=== PATIENT | female | born 1940 | race Caucasian/White ===

== ENCOUNTER 2021-01-02 11:36 | Outpatient (CLI) | payer MEDICARE | END 2021-01-02 11:37 | disposition home or self-care (01) | LOC: CSHMAMMO 11:36 | PROVIDERS: ATTEND Family Medicine | DX: Z12.31 Encounter for screening mammogram for malignant neoplasm of breast (principal) | CPT/HCPCS: 77063; 77067 ==

== ENCOUNTER 2021-01-16 10:29 | Outpatient (CLI) | payer MEDICARE ==
[2021-01-16 18:29] LABS: SARS-CoV-2 PCR by NAA Not Detected (NotDetected)
== END 2021-01-16 10:30 | disposition home or self-care (01) ==
LOC: CSHLAB 10:29
PROVIDERS: ATTEND Internal Medicine Gastroenterology
DX: Z20.822 Contact with and (suspected) exposure to COVID-19 (principal)
CPT/HCPCS: 87635; U0003; U0005

== ENCOUNTER 2021-01-20 08:26 | Outpatient (CLI) | payer MEDICARE | END 2021-01-20 08:27 | disposition home or self-care (01) | LOC: CSHNM 08:26 | PROVIDERS: ATTEND Internal Medicine Gastroenterology | DX: E11.43 Type 2 diabetes mellitus with diabetic autonomic (poly)neuropathy (principal) | CPT/HCPCS: 78264; A9541 ==

== ENCOUNTER 2021-11-01 11:51 | Emergency (ER) | payer MEDICARE | END 2021-11-01 12:55 | disposition home or self-care (01) | LOC: CSHERS 11:51 | DX: M54.50 Low back pain, unspecified (principal); K59.00 Constipation, unspecified; F11.90 Opioid use, unspecified, uncomplicated; I10 Essential (primary) hypertension; E11.9 Type 2 diabetes mellitus without complications; G47.30 Sleep apnea, unspecified; Z85.828 Personal history of other malignant neoplasm of skin; E66.9 Obesity, unspecified; E78.5 Hyperlipidemia, unspecified; M19.90 Unspecified osteoarthritis, unspecified site | CPT/HCPCS: 99283 ==

== ENCOUNTER 2022-09-15 13:38 | Inpatient (IN) | payer OTHER ==
[2022-09-15] MEDS ORDERED: Morphine 4 MG/ML VIAL ONE (15:24)
[2022-09-15] MEDS ORDERED: Ketorolac Tromethamine 30 MG/ML VIAL ONE (15:25)
[2022-09-15] MEDS ORDERED: Ondansetron PF 4 MG/2 ML Vial ONE (15:25)
[2022-09-15 15:40] LABS: #Basophils 0.1 10x3/uL (0.0-0.2); #Eosinphils 0.2 10x3/uL (0.0-0.5); #Monocytes 0.7 10x3/uL (0.0-1.1); #Neutrophils 7.4 10x3/uL (1.5-8.4); %Basophils 0.7 % (0.0-2.0); %Eosinophils 1.6 % (0.0-6.0); %Lymphocytes 16.2 % (18.0-47.0); %Monocytes 7.3 % (0.0-10.0); %Neutrophils 73.5 % (40.0-75.0); Hemoglobin 10.1 g/dL (12.0-15.5); Mean Corpuscular HGB CONC 32.2 g/dL (32.0-36.0); Mean Corpuscular Hemoglobin 27.4 pg (27.0-33.0); Mean Corpuscular Volume 85.1 fl (81.6-98.3); Mean Platelet Volume 9.5 fl (7.4-10.4); Platelet Count 315 10x3/uL (150-450); RBC Distribution Width 15.2 % (11.5-14.5); Red Blood Cell (RBC) Count 3.69 10x6/uL (3.90-5.03); White Blood Cell (WBC) Count 10.1 10x3/uL (3.5-10.5)
[2022-09-15 15:51] LABS: ALT (SGPT) 6 U/L (8-55); AST (SGOT) 11 U/L (5-34); Alkaline Phosphatase 79 U/L (40-110); Anion Gap 16 mmol/L (10-20); BUN (Urea Nitrogen) 43 mg/dL (9.8-20.1); Bilirubin, Total 0.3 mg/dL (0.2-1.2); Calc. Creatinine Clearance 0 mL/min (70-130); Carbon Dioxide 24 mmol/L (23-31); Chloride 101 mmol/L (98-107); Estimated GFR 23; Globulin 3.4 g/dL (2.4-3.5); Glucose 194 mg/dL (83-110); Magnesium 1.5 mg/dL (1.6-2.6); Potassium 5.5 mmol/L (3.5-5.1); Protein, Total 7.4 g/dL (5.8-8.1); Sodium 135 mmol/L (136-145)
[2022-09-15 17:46] LABS: SARS-CoV-2 NAA Rapid Test Not Detected (NotDetected)
[2022-09-15] MEDS ORDERED: HumaLOG 300 UNITS/3 ML VIAL SC PRN (17:48)
[2022-09-15] MEDS ORDERED: Dextrose 50% Abboject 50 ML SYRINGE SLOW IVP PRN ×2 (17:48→18:06)
[2022-09-15] MEDS ORDERED: Dextrose 5% in Water 1,000 ML IV PRN (17:48)
[2022-09-15] MEDS ORDERED: HYDROcodone/Acetaminophen 7.5/325 mg Tablet PO PRN (17:49)
[2022-09-15] MEDS ORDERED: Morphine 2 MG/ML VIAL SLOW IVP PRN (17:50)
[2022-09-15] MEDS ORDERED: Acetaminophen 325 MG TAB PO PRN (17:51)
[2022-09-15] MEDS ORDERED: Ondansetron PF 4 MG/2 ML Vial IVP PRN (17:51)
[2022-09-15] MEDS ORDERED: Senokot S 8.6-50 MG TAB PO PRN (17:51)
[2022-09-15] MEDS ORDERED: Ondansetron ODT 4 MG TAB PO PRN (17:51)
[2022-09-15] MEDS ORDERED: Insulin Regular 300 UNITS/3 ML VIAL IVP ONE (18:09)
[2022-09-15] MEDS ORDERED: Magnesium 2 GM/50 ML(in water) 2 GM in Premix Bag 1 BAG IVPB ONE (18:10)
[2022-09-15] MEDS ORDERED: Sodium Chloride 0.9% 1,000 ML IV SCH (18:15)
[2022-09-15] MEDS ORDERED: Magnesium 2 GM/50 ML(in water) 2 GM in Premix Bag 1 BAG IVPB SCH (19:45)
[2022-09-15 20:19] VITALS: BMI 34.4
[2022-09-15 20:30] LABS: Potassium 4.2 mmol/L (3.5-5.1)
[2022-09-15] MEDS: Famotidine 20 MG TAB PO SCH (20:55)
[2022-09-15] MEDS: Morphine ER 15 MG TAB PO SCH (20:55)
[2022-09-15] MEDS: Calcium Gluc 4.6 MEQ/10 ML (100 MG/ML) SLOW IVP SCH ×2 (20:55→21:40)
[2022-09-15] MEDS: Gabapentin 400 MG CAP PO SCH (20:58)
[2022-09-15] MEDS: Apixaban 5 MG TAB PO SCH (20:58)
[2022-09-16 04:34] LABS: #Basophils 0.1 10x3/uL (0.0-0.2); #Eosinphils 0.2 10x3/uL (0.0-0.5); #Monocytes 0.7 10x3/uL (0.0-1.1); #Neutrophils 5.2 10x3/uL (1.5-8.4); %Basophils 0.8 % (0.0-2.0); %Eosinophils 2.4 % (0.0-6.0); %Lymphocytes 20.7 % (18.0-47.0); %Monocytes 8.5 % (0.0-10.0); %Neutrophils 66.7 % (40.0-75.0); Mean Corpuscular HGB CONC 31.7 g/dL (32.0-36.0); Mean Corpuscular Hemoglobin 27.3 pg (27.0-33.0); Mean Corpuscular Volume 86.1 fl (81.6-98.3); Mean Platelet Volume 9.3 fl (7.4-10.4); Platelet Count 300 10x3/uL (150-450); RBC Distribution Width 14.8 % (11.5-14.5); Red Blood Cell (RBC) Count 3.66 10x6/uL (3.90-5.03); White Blood Cell (WBC) Count 7.9 10x3/uL (3.5-10.5)
[2022-09-16 04:53] LABS: Anion Gap 15 mmol/L (10-20); BUN (Urea Nitrogen) 43 mg/dL (9.8-20.1); Calc. Creatinine Clearance 32 mL/min (70-130); Calcium 10.1 mg/dL (7.8-10.44); Carbon Dioxide 24 mmol/L (23-31); Chloride 104 mmol/L (98-107); Estimated GFR 24; Glucose 154 mg/dL (83-110); Magnesium 2.3 mg/dL (1.6-2.6); Potassium 5.5 mmol/L (3.5-5.1); Sodium 137 mmol/L (136-145)
[2022-09-16] MEDS ORDERED: Dextrose 50% Abboject 50 ML SYRINGE SLOW IVP SCH (08:00)
[2022-09-16] MEDS ORDERED: metFORMIN 500 MG TAB PO SCH (08:00)
[2022-09-16] MEDS ORDERED: Insulin Regular 300 UNITS/3 ML VIAL IVP SCH (08:00)
[2022-09-16] MEDS ORDERED: Lisinopril 5 MG TAB PO SCH (09:00)
[2022-09-16] MEDS: Amlodipine 10 MG TAB PO SCH (09:20)
[2022-09-16] MEDS: Gabapentin 400 MG CAP PO SCH ×2 (09:20→21:32)
[2022-09-16] MEDS: Apixaban 5 MG TAB PO SCH ×2 (09:20→21:32)
[2022-09-16] MEDS: Morphine ER 15 MG TAB PO SCH ×3 (09:21→21:32)
[2022-09-16] MEDS: HumaLOG 300 UNITS/3 ML VIAL SC PRN ×2 (12:45→17:30)
[2022-09-16 12:57] LABS: Bilirubin Neg (Negative); Blood, Urine Negative (Negative); Clarity Clear (Clear); Glucose, Urine (Dipstick) 50 mg/dL (Negative); Ketone, Urine Negative (Negative); Leukocyte Negative (Negative); Nitrite Negative (Negative); Protein, Urine (Dipstick) 15 mg/dl (Neg-Trace); Specific Gravity, Urine 1.015 (1.005-1.030); Urobilinogen Normal mg/dL (Less than 2)
[2022-09-16 13:04] LABS: Bacteria/HPF None Seen HPF (None Seen); RBC/HPF 0-3 HPF (0-3); Squamous Epithelial 0-3 HPF (0-3); WBC/HPF 0-3 HPF (0-3)
[2022-09-16 13:39] LABS: ALV-art Gradient 57.345 mmHg (0-20); Actual Bicarbonate (HCO3a) 21.5 mEq/L (22-28); Base Excess (BEa) -4.7 mEq/L (-2.0 to +3.0); CO2 Tension 43.9 mmHg (35.0-45.0); Calcium, Ionized (arterial) 1.27 mmol/L (1.12-1.30); Carboxyhemoglobin (COHb) 0.4 gm% (0.0-3.0); O2 Tension (PaO2), arterial 58.9 mmHg (> 70.0); Potassium - ABG Lab 5.2 mmol/L (3.70-5.30); Puncture Site RRA; pH, Arterial 7.31 (7.35-7.45)
[2022-09-16] MEDS: Sodium Chloride 0.9% 1,000 ML IV SCH (15:09)
[2022-09-16 17:01] LABS: Anion Gap 14 mmol/L (10-20); BUN (Urea Nitrogen) 37 mg/dL (9.8-20.1); Calc. Creatinine Clearance 40 mL/min (70-130); Calcium 10.3 mg/dL (7.8-10.44); Carbon Dioxide 24 mmol/L (23-31); Chloride 104 mmol/L (98-107); Estimated GFR 32; Glucose 160 mg/dL (83-110); Potassium 5.3 mmol/L (3.5-5.1); Sodium 137 mmol/L (136-145)
[2022-09-16] MEDS ORDERED: LOKELMA 10 GM PACKET PO SCH (18:15)
[2022-09-16] MEDS: Famotidine 20 MG TAB PO SCH (21:32)
[2022-09-17 00:18] LABS: Anion Gap 14 mmol/L (10-20); BUN (Urea Nitrogen) 29 mg/dL (9.8-20.1); Calc. Creatinine Clearance 47 mL/min (70-130); Calcium 9.9 mg/dL (7.8-10.44); Carbon Dioxide 25 mmol/L (23-31); Chloride 106 mmol/L (98-107); Estimated GFR 39; Glucose 164 mg/dL (83-110); Potassium 5.3 mmol/L (3.5-5.1); Sodium 140 mmol/L (136-145)
[2022-09-17 04:36] LABS: #Basophils 0.1 10x3/uL (0.0-0.2); #Eosinphils 0.2 10x3/uL (0.0-0.5); #Monocytes 0.5 10x3/uL (0.0-1.1); #Neutrophils 4.7 10x3/uL (1.5-8.4); %Basophils 0.8 % (0.0-2.0); %Eosinophils 2.7 % (0.0-6.0); %Lymphocytes 17.1 % (18.0-47.0); %Monocytes 7.2 % (0.0-10.0); %Neutrophils 71.3 % (40.0-75.0); Mean Corpuscular HGB CONC 32.6 g/dL (32.0-36.0); Mean Corpuscular Hemoglobin 27.5 pg (27.0-33.0); Mean Corpuscular Volume 84.3 fl (81.6-98.3); Mean Platelet Volume 9.1 fl (7.4-10.4); Platelet Count 272 10x3/uL (150-450); RBC Distribution Width 14.6 % (11.5-14.5); Red Blood Cell (RBC) Count 3.64 10x6/uL (3.90-5.03); White Blood Cell (WBC) Count 6.7 10x3/uL (3.5-10.5)
[2022-09-17 04:45] LABS: Anion Gap 12 mmol/L (10-20); BUN (Urea Nitrogen) 25 mg/dL (9.8-20.1); Calc. Creatinine Clearance 58 mL/min (70-130); Calcium 9.8 mg/dL (7.8-10.44); Carbon Dioxide 25 mmol/L (23-31); Chloride 104 mmol/L (98-107); Estimated GFR 49; Glucose 167 mg/dL (83-110); Potassium 4.3 mmol/L (3.5-5.1); Sodium 137 mmol/L (136-145)
[2022-09-17] MEDS: Apixaban 5 MG TAB PO SCH ×2 (09:52→20:29)
[2022-09-17] MEDS: Amlodipine 10 MG TAB PO SCH (09:52)
[2022-09-17] MEDS: Gabapentin 400 MG CAP PO SCH ×2 (09:52→20:29)
[2022-09-17] MEDS: Morphine ER 15 MG TAB PO SCH ×3 (09:53→20:30)
[2022-09-17] MEDS: Sodium Chloride 0.9% 1,000 ML IV SCH (09:54)
[2022-09-17] MEDS: HumaLOG 300 UNITS/3 ML VIAL SC PRN ×2 (12:01→17:02)
[2022-09-17] MEDS: Famotidine 20 MG TAB PO SCH (20:29)
[2022-09-18] MEDS: Sodium Chloride 0.9% 1,000 ML IV SCH (01:58)
[2022-09-18 05:24] LABS: #Eosinphils 0.2 10x3/uL (0.0-0.5); #Monocytes 0.6 10x3/uL (0.0-1.1); #Neutrophils 5.2 10x3/uL (1.5-8.4); %Basophils 0.4 % (0.0-2.0); %Eosinophils 2.3 % (0.0-6.0); %Lymphocytes 20.2 % (18.0-47.0); %Monocytes 7.6 % (0.0-10.0); %Neutrophils 68.6 % (40.0-75.0); Mean Corpuscular HGB CONC 31.6 g/dL (32.0-36.0); Mean Corpuscular Volume 85.2 fl (81.6-98.3); Platelet Count 292 10x3/uL (150-450); Red Blood Cell (RBC) Count 3.71 10x6/uL (3.90-5.03); White Blood Cell (WBC) Count 7.5 10x3/uL (3.5-10.5)
[2022-09-18 05:31] LABS: Anion Gap 14 mmol/L (10-20); BUN (Urea Nitrogen) 18 mg/dL (9.8-20.1); Calc. Creatinine Clearance 58 mL/min (70-130); Carbon Dioxide 25 mmol/L (23-31); Chloride 106 mmol/L (98-107); Estimated GFR 49; Glucose 170 mg/dL (83-110); Potassium 4.2 mmol/L (3.5-5.1); Sodium 141 mmol/L (136-145)
[2022-09-18] MEDS: HumaLOG 300 UNITS/3 ML VIAL SC PRN (05:41)
[2022-09-18] MEDS: Morphine ER 15 MG TAB PO SCH (08:42)
[2022-09-18] MEDS: Amlodipine 10 MG TAB PO SCH (08:43)
[2022-09-18] MEDS: Gabapentin 400 MG CAP PO SCH (08:44)
[2022-09-18] MEDS: Apixaban 5 MG TAB PO SCH (08:44)
[2022-09-18 09:00] VITALS: TEMP 98.4
[2022-09-18 11:45] VITALS: BP 194/77
== END 2022-09-18 11:25 | disposition home or self-care (01) | DRG 183 ==
LOC: CSHERS 13:38 → CSHTELE 18:48 → OBSVTOIN 09-17 13:54
PROVIDERS: ADMIT Internal Medicine; ATTEND Internal Medicine
DX: S22.41XA Multiple fractures of ribs, right side, initial encounter for closed fracture (principal); J96.01 Acute respiratory failure with hypoxia; I48.20 Chronic atrial fibrillation, unspecified; N17.9 Acute kidney failure, unspecified; E87.20 Acidosis, unspecified; E11.22 Type 2 diabetes mellitus with diabetic chronic kidney disease; I12.9 Hypertensive chronic kidney disease with stage 1 through stage 4 chronic kidney disease, or unspecified chronic kidney disease; N18.30 Chronic kidney disease, stage 3 unspecified; E11.40 Type 2 diabetes mellitus with diabetic neuropathy, unspecified; E78.5 Hyperlipidemia, unspecified; G89.4 Chronic pain syndrome; D63.1 Anemia in chronic kidney disease; E87.5 Hyperkalemia; Z20.822 Contact with and (suspected) exposure to COVID-19; W19.XXXA Unspecified fall, initial encounter; R91.1 Solitary pulmonary nodule; Z88.5 Allergy status to narcotic agent; Z91.018 Allergy to other foods; Z79.899 Other long term (current) drug therapy; Z79.84 Long term (current) use of oral hypoglycemic drugs; Z79.4 Long term (current) use of insulin; Z90.49 Acquired absence of other specified parts of digestive tract; Z90.710 Acquired absence of both cervix and uterus; Z98.890 Other specified postprocedural states
CPT/HCPCS: 36415; 36416; 36600; 70450; 71250; 80048; 80053; 81001; 82533; 82805; 83735; 85025; 94640; 94760; 94799; 96374; 96375; 96376; G0378; J0610; J1815; J1885; J2270; J2272; J2405; J3475; J7050; J7611; J7999

== ENCOUNTER 2022-10-09 11:48 | Outpatient (CLI) | payer OTHER | END 2022-10-09 11:49 | disposition home or self-care (01) | LOC: CSHMAMMO 11:48 | PROVIDERS: ATTEND Family Medicine | DX: Z12.31 Encounter for screening mammogram for malignant neoplasm of breast (principal); Z80.3 Family history of malignant neoplasm of breast | CPT/HCPCS: 77063; 77067 ==

== ENCOUNTER 2022-10-12 14:34 | Observation (INO) | payer OTHER ==
[2022-10-12 15:52] LABS: #Basophils 0.1 10x3/uL (0.0-0.2); #Eosinphils 0.2 10x3/uL (0.0-0.5); #Monocytes 0.6 10x3/uL (0.0-1.1); #Neutrophils 4.9 10x3/uL (1.5-8.4); %Basophils 0.7 % (0.0-2.0); %Eosinophils 2.2 % (0.0-6.0); %Lymphocytes 22.9 % (18.0-47.0); %Monocytes 8.5 % (0.0-10.0); %Neutrophils 65.2 % (40.0-75.0); Hemoglobin 9.8 g/dL (12.0-15.5); Mean Corpuscular HGB CONC 31.4 g/dL (32.0-36.0); Mean Corpuscular Hemoglobin 26.8 pg (27.0-33.0); Mean Corpuscular Volume 85.2 fl (81.6-98.3); Mean Platelet Volume 8.9 fl (7.4-10.4); Platelet Count 287 10x3/uL (150-450); RBC Distribution Width 14.6 % (11.5-14.5); Red Blood Cell (RBC) Count 3.66 10x6/uL (3.90-5.03); White Blood Cell (WBC) Count 7.6 10x3/uL (3.5-10.5)
[2022-10-12 16:01] LABS: Anion Gap 15 mmol/L (10-20); BUN (Urea Nitrogen) 26 mg/dL (9.8-20.1); Calc. Creatinine Clearance 0 mL/min (70-130); Carbon Dioxide 26 mmol/L (23-31); Chloride 106 mmol/L (98-107); Potassium 4.5 mmol/L (3.5-5.1); Sodium 142 mmol/L (136-145)
[2022-10-12 16:02] LABS: ALT (SGPT) Less than 6 U/L (8-55); AST (SGOT) 13 U/L (5-34); Albumin 3.9 g/dL (3.4-4.8); Alkaline Phosphatase 78 U/L (40-110); Bilirubin, Total 0.2 mg/dL (0.2-1.2); Calcium 9.2 mg/dL (7.8-10.44); Estimated GFR 27; Globulin 2.6 g/dL (2.4-3.5); Glucose 114 mg/dL (83-110); Protein, Total 6.5 g/dL (5.8-8.1)
[2022-10-12 17:13] LABS: Bilirubin Neg (Negative); Blood, Urine Negative (Negative); Clarity Clear (Clear); Glucose, Urine (Dipstick) Normal (Negative); Ketone, Urine Negative (Negative); Leukocyte 100 (Negative); Nitrite Negative (Negative); Protein, Urine (Dipstick) 15 mg/dl (Neg-Trace); Urobilinogen Normal mg/dL (Less than 2)
[2022-10-12 17:23] LABS: Bacteria/HPF 1+ HPF (None Seen); RBC/HPF 0-3 HPF (0-3)
[2022-10-12] MEDS ORDERED: Ondansetron PF 4 MG/2 ML Vial IVP PRN (17:56)
[2022-10-12] MEDS ORDERED: Acetaminophen 650 MG Suppository PR PRN (17:56)
[2022-10-12] MEDS ORDERED: Ondansetron ODT 4 MG TAB PO PRN (17:56)
[2022-10-12] MEDS ORDERED: Acetaminophen 325 MG TAB PO PRN (17:56)
[2022-10-12 20:15] VITALS: BMI 32.8
[2022-10-12] MEDS ORDERED: Morphine ER 15 MG TAB PO PRN (20:50)
[2022-10-12] MEDS ORDERED: tiZANidine HCl 4 MG TAB PO PRN (20:50)
[2022-10-12] MEDS ORDERED: Carvedilol 6.25 MG TAB PO SCH (21:00)
[2022-10-12] MEDS ORDERED: Acyclovir 400 mg Tablet PO SCH (21:00)
[2022-10-12] MEDS ORDERED: Dextrose 5% in Water 1,000 ML IV PRN (22:45)
[2022-10-12] MEDS ORDERED: Dextrose 50% Abboject 50 ML SYRINGE IVP PRN (22:45)
[2022-10-12] MEDS: Apixaban 5 MG TAB PO SCH (22:49)
[2022-10-12] MEDS: Gabapentin 400 MG CAP PO SCH (22:50)
[2022-10-12] MEDS: Sodium Chloride 0.9% 1,000 ML IV SCH (22:50)
[2022-10-12] MEDS: HumaLOG 300 UNITS/3 ML VIAL SC PRN (22:51)
[2022-10-13 04:28] LABS: #Basophils 0.1 10x3/uL (0.0-0.2); #Eosinphils 0.2 10x3/uL (0.0-0.5); #Monocytes 0.6 10x3/uL (0.0-1.1); #Neutrophils 4.5 10x3/uL (1.5-8.4); %Eosinophils 2.9 % (0.0-6.0); %Lymphocytes 24.7 % (18.0-47.0); %Monocytes 8.3 % (0.0-10.0); %Neutrophils 62.5 % (40.0-75.0); Hemoglobin 9.1 g/dL (12.0-15.5); Mean Corpuscular HGB CONC 31.5 g/dL (32.0-36.0); Mean Corpuscular Hemoglobin 26.8 pg (27.0-33.0); Mean Corpuscular Volume 85.3 fl (81.6-98.3); Mean Platelet Volume 9.2 fl (7.4-10.4); Platelet Count 257 10x3/uL (150-450); RBC Distribution Width 14.6 % (11.5-14.5); Red Blood Cell (RBC) Count 3.39 10x6/uL (3.90-5.03); White Blood Cell (WBC) Count 7.1 10x3/uL (3.5-10.5)
[2022-10-13 04:35] LABS: Anion Gap 12 mmol/L (10-20); BUN (Urea Nitrogen) 23 mg/dL (9.8-20.1); Calc. Creatinine Clearance 40 mL/min (70-130); Calcium 9.1 mg/dL (7.8-10.44); Carbon Dioxide 26 mmol/L (23-31); Chloride 106 mmol/L (98-107); Estimated GFR 34; Glucose 134 mg/dL (83-110); Potassium 4.1 mmol/L (3.5-5.1); Sodium 140 mmol/L (136-145)
[2022-10-13] MEDS ORDERED: metFORMIN 500 MG TAB PO SCH (08:00)
[2022-10-13] MEDS ORDERED: [UNRECOGNIZED DRUG - OTHER] SQ SCH (09:00)
[2022-10-13] MEDS ORDERED: Torsemide 20 MG TAB PO SCH (09:00)
[2022-10-13] MEDS ORDERED: Lisinopril 5 MG TAB PO SCH (09:00)
[2022-10-13] MEDS: Sodium Chloride 0.9% 1,000 ML IV SCH (10:56)
[2022-10-13] MEDS: Apixaban 5 MG TAB PO SCH (11:55)
[2022-10-13] MEDS: Gabapentin 400 MG CAP PO SCH (11:55)
[2022-10-13] MEDS: HumaLOG 300 UNITS/3 ML VIAL SC PRN (14:01)
[2022-10-13 14:47] VITALS: BP 168/68; TEMP 99.2
== END 2022-10-13 16:47 | disposition home or self-care (01) ==
LOC: CSHERS 14:34 → CSHTELE 17:26
PROVIDERS: ADMIT Family Medicine; ATTEND Internal Medicine
DX: I95.1 Orthostatic hypotension (principal); M79.7 Fibromyalgia; K52.9 Noninfective gastroenteritis and colitis, unspecified; I48.0 Paroxysmal atrial fibrillation; I12.9 Hypertensive chronic kidney disease with stage 1 through stage 4 chronic kidney disease, or unspecified chronic kidney disease; E11.22 Type 2 diabetes mellitus with diabetic chronic kidney disease; N18.9 Chronic kidney disease, unspecified; G47.33 Obstructive sleep apnea (adult) (pediatric); E78.5 Hyperlipidemia, unspecified; Z79.4 Long term (current) use of insulin; Z79.899 Other long term (current) drug therapy; Z79.01 Long term (current) use of anticoagulants; Z88.5 Allergy status to narcotic agent; Z90.49 Acquired absence of other specified parts of digestive tract
CPT/HCPCS: 80048; 80053; 82962 ×2; 83605; 84484; 85025 ×2; 87086; 93005; 96360; 99285; G0378 ×3; 36416; 81003; 81015; J1815; J7050

== ENCOUNTER 2022-10-17 11:16 | Emergency (ER) | payer OTHER ==
[2022-10-17 12:05] LABS: #Basophils 0.1 10x3/uL (0.0-0.2); #Eosinphils 0.2 10x3/uL (0.0-0.5); #Monocytes 0.7 10x3/uL (0.0-1.1); #Neutrophils 5.7 10x3/uL (1.5-8.4); %Basophils 0.7 % (0.0-2.0); %Eosinophils 1.8 % (0.0-6.0); %Lymphocytes 22.1 % (18.0-47.0); %Monocytes 7.7 % (0.0-10.0); %Neutrophils 67.2 % (40.0-75.0); Hemoglobin 9.4 g/dL (12.0-15.5); Mean Corpuscular HGB CONC 31.8 g/dL (32.0-36.0); Mean Corpuscular Hemoglobin 26.9 pg (27.0-33.0); Mean Corpuscular Volume 84.6 fl (81.6-98.3); Mean Platelet Volume 9.2 fl (7.4-10.4); Platelet Count 271 10x3/uL (150-450); RBC Distribution Width 14.6 % (11.5-14.5); White Blood Cell (WBC) Count 8.5 10x3/uL (3.5-10.5)
[2022-10-17 12:28] LABS: Bilirubin 1+ (Negative); Blood, Urine Negative (Negative); Glucose, Urine (Dipstick) Normal (Negative); Ketone, Urine Negative (Negative); Leukocyte 100 (Negative); Nitrite Negative (Negative); Protein, Urine (Dipstick) 30 mg/dl (Neg-Trace); Urobilinogen Normal mg/dL (Less than 2)
[2022-10-17 12:30] LABS: Clarity Clear (Clear)
[2022-10-17 12:31] LABS: ALT (SGPT) 7 U/L (8-55); AST (SGOT) 13 U/L (5-34); Albumin 3.7 g/dL (3.4-4.8); Alkaline Phosphatase 69 U/L (40-110); Anion Gap 15 mmol/L (10-20); BUN (Urea Nitrogen) 26 mg/dL (9.8-20.1); Bilirubin, Total 0.3 mg/dL (0.2-1.2); Calc. Creatinine Clearance 0 mL/min (70-130); Carbon Dioxide 25 mmol/L (23-31); Chloride 101 mmol/L (98-107); Estimated GFR 31; Globulin 2.5 g/dL (2.4-3.5); Glucose 111 mg/dL (83-110); Protein, Total 6.2 g/dL (5.8-8.1); Sodium 137 mmol/L (136-145)
[2022-10-17 12:46] LABS: RBC/HPF None Seen HPF (0-3)
[2022-10-17 12:47] LABS: Bacteria/HPF None Seen HPF (None Seen); Squamous Epithelial 0-3 HPF (0-3); WBC/HPF 0-3 HPF (0-3)
== END 2022-10-17 13:04 | disposition home or self-care (01) ==
LOC: CSHERS 11:16
DX: R53.1 Weakness (principal); T42.8X5A Adverse effect of antiparkinsonism drugs and other central muscle-tone depressants, initial encounter; E11.9 Type 2 diabetes mellitus without complications; Z79.4 Long term (current) use of insulin; I10 Essential (primary) hypertension; E66.9 Obesity, unspecified; E78.5 Hyperlipidemia, unspecified; Z79.84 Long term (current) use of oral hypoglycemic drugs
CPT/HCPCS: 36415; 71045; 80053; 81003; 81015; 84484; 85025; 93005

== ENCOUNTER 2023-08-21 18:18 | Emergency (ER) | payer MEDICARE, OTHER ==
[~2023-08-21 18:18] MED LIST: Iopamidol 300 61% 100 ML VIAL FS ONE
[2023-08-21] MEDS ORDERED: Lidocaine 4% Patch TD SCH (19:00)
[2023-08-21 19:17] LABS: #Basophils 0.1 10x3/uL (0.0-0.2); #Eosinphils 0.1 10x3/uL (0.0-0.5); #Monocytes 0.6 10x3/uL (0.0-1.1); #Neutrophils 5.5 10x3/uL (1.5-8.4); %Basophils 0.8 % (0.0-2.0); %Eosinophils 1.8 % (0.0-6.0); %Lymphocytes 20.1 % (18.0-47.0); %Monocytes 7.8 % (0.0-10.0); %Neutrophils 68.7 % (40.0-75.0); Hematocrit 35.6 % (34.9-44.5); Hemoglobin 11.7 g/dL (12.0-15.5); Mean Corpuscular HGB CONC 32.9 g/dL (32.0-36.0); Mean Corpuscular Volume 88.1 fl (81.6-98.3); Mean Platelet Volume 9.5 fl (7.4-10.4); Platelet Count 278 10x3/uL (150-450); RBC Distribution Width 13.5 % (11.5-14.5); Red Blood Cell (RBC) Count 4.04 10x6/uL (3.90-5.03)
[2023-08-21 19:19] LABS: ALT (SGPT) 20 U/L (8-55); AST (SGOT) 22 U/L (5-34); Alkaline Phosphatase 79 U/L (40-110); Anion Gap 16 mmol/L (10-20); BUN (Urea Nitrogen) 15 mg/dL (9.8-20.1); Bilirubin, Total 0.3 mg/dL (0.2-1.2); Calc. Creatinine Clearance 0 mL/min (70-130); Calcium 9.7 mg/dL (7.8-10.44); Carbon Dioxide 26 mmol/L (23-31); Chloride 101 mmol/L (98-107); Estimated GFR 49; Globulin 2.9 g/dL (2.4-3.5); Glucose 255 mg/dL (83-110); Potassium 4.9 mmol/L (3.5-5.1); Protein, Total 6.9 g/dL (5.8-8.1); Sodium 138 mmol/L (136-145)
[2023-08-22] MEDS ORDERED: Transdermal Patch Removal TOP SCH (08:00)
== END 2023-08-21 20:22 | disposition home or self-care (01) ==
LOC: CSHERS 18:18
DX: S20.20XA Contusion of thorax, unspecified, initial encounter (principal); I10 Essential (primary) hypertension; E11.9 Type 2 diabetes mellitus without complications; W01.0XXA Fall on same level from slipping, tripping and stumbling without subsequent striking against object, initial encounter; Z79.4 Long term (current) use of insulin
CPT/HCPCS: 36415; 70450; 71260; 72125; 74177; 80053; 85025; 93005; 93010; Q9967

== ENCOUNTER 2023-08-27 15:36 | Inpatient (IN) | payer OTHER ==
[2023-08-27] MEDS ORDERED: Cefepime 2 GM VIAL ONE (16:22)
[2023-08-27 16:36] LABS: #Basophils 0.1 10x3/uL (0.0-0.2); #Eosinphils 0.2 10x3/uL (0.0-0.5); #Monocytes 0.7 10x3/uL (0.0-1.1); #Neutrophils 6.8 10x3/uL (1.5-8.4); %Basophils 0.7 % (0.0-2.0); %Eosinophils 1.6 % (0.0-6.0); %Lymphocytes 23.2 % (18.0-47.0); %Monocytes 6.9 % (0.0-10.0); %Neutrophils 66.9 % (40.0-75.0); Hematocrit 36.4 % (34.9-44.5); Hemoglobin 11.9 g/dL (12.0-15.5); Mean Corpuscular HGB CONC 32.7 g/dL (32.0-36.0); Mean Corpuscular Volume 88.6 fl (81.6-98.3); Mean Platelet Volume 9.6 fl (7.4-10.4); Platelet Count 307 10x3/uL (150-450); Red Blood Cell (RBC) Count 4.11 10x6/uL (3.90-5.03); White Blood Cell (WBC) Count 10.1 10x3/uL (3.5-10.5)
[2023-08-27 16:40] LABS: ALT (SGPT) 22 U/L (8-55); AST (SGOT) 26 U/L (5-34); Alkaline Phosphatase 78 U/L (40-110); Anion Gap 16 mmol/L (10-20); BUN (Urea Nitrogen) 20 mg/dL (9.8-20.1); Bilirubin, Total 0.3 mg/dL (0.2-1.2); Calc. Creatinine Clearance 0 mL/min (70-130); Calcium 9.1 mg/dL (7.8-10.44); Carbon Dioxide 25 mmol/L (23-31); Chloride 101 mmol/L (98-107); Estimated GFR 39; Globulin 2.5 g/dL (2.4-3.5); Glucose 162 mg/dL (83-110); Magnesium 1.7 mg/dL (1.6-2.6); Protein, Total 6.5 g/dL (5.8-8.1); Sodium 137 mmol/L (136-145)
[2023-08-27 16:47] LABS: Troponin I 0.014 ng/mL (< 0.028)
[2023-08-27 17:16] LABS: SARS-CoV-2 NAA Rapid Test Not Detected (NotDetected)
[2023-08-27] MEDS ORDERED: Vancomycin 1.5 GRAM/300 ML BAG 1.5 GM in Premix 1 BAG IVPB SCH (17:45)
[2023-08-27] MEDS ORDERED: Acetaminophen 500 MG TAB ONE (18:58)
[2023-08-27] MEDS ORDERED: Glucagon 1 MG/ML KIT IM PRN (19:30)
[2023-08-27] MEDS ORDERED: Calcium Carbonate 500 MG ChewTAB PO PRN (19:30)
[2023-08-27] MEDS ORDERED: Senokot S 8.6-50 MG TAB PO PRN (19:30)
[2023-08-27] MEDS ORDERED: Dextrose 5% in Water 1,000 ML IV PRN (19:30)
[2023-08-27] MEDS ORDERED: Dextrose 50% Abboject 50 ML SYRINGE SLOW IVP PRN (19:30)
[2023-08-27] MEDS ORDERED: HYDROcodone/Acetaminophen 5/325 mg Tablet PO PRN (19:30)
[2023-08-27] MEDS ORDERED: Acetaminophen 325 MG TAB PO PRN (19:30)
[2023-08-27] MEDS ORDERED: Ondansetron PF 4 MG/2 ML Vial IVP PRN (19:30)
[2023-08-27] MEDS ORDERED: Guaifenesin DM 100-10/5 ML UDCUP PO PRN (19:30)
[2023-08-27] MEDS ORDERED: Oxymetazoline HCl 0.05% ( 15 ML ) NASAL PRN (19:36)
[2023-08-27 21:35] VITALS: BMI 34.3
[2023-08-27] MEDS: Gabapentin 400 MG CAP PO SCH (21:38)
[2023-08-27] MEDS: Atorvastatin Calcium 10 MG TAB PO SCH (21:38)
[2023-08-27] MEDS: Apixaban 5 MG TAB PO SCH (21:39)
[2023-08-27] MEDS: HumaLOG 300 UNITS/3 ML VIAL SC PRN (21:51)
[2023-08-27] MEDS ORDERED: Acyclovir 200 mg Capsule PO SCH (22:00)
[2023-08-27 23:22] LABS: Legionella Urinary Ag Negative (Negative); Strep pneumo Urine Ag NEGATIVE (NEGATIVE)
[2023-08-28 04:48] LABS: #Basophils 0.1 10x3/uL (0.0-0.2); #Eosinphils 0.1 10x3/uL (0.0-0.5); #Monocytes 0.7 10x3/uL (0.0-1.1); #Neutrophils 4.3 10x3/uL (1.5-8.4); %Basophils 0.9 % (0.0-2.0); %Eosinophils 1.9 % (0.0-6.0); %Lymphocytes 24.6 % (18.0-47.0); %Monocytes 9.5 % (0.0-10.0); %Neutrophils 62.1 % (40.0-75.0); Hematocrit 33.8 % (34.9-44.5); Mean Corpuscular HGB CONC 32.5 g/dL (32.0-36.0); Mean Corpuscular Hemoglobin 28.9 pg (27.0-33.0); Mean Corpuscular Volume 88.7 fl (81.6-98.3); Mean Platelet Volume 9.5 fl (7.4-10.4); Platelet Count 235 10x3/uL (150-450); Red Blood Cell (RBC) Count 3.81 10x6/uL (3.90-5.03)
[2023-08-28] MEDS ORDERED: tiZANidine HCl 4 MG TAB PO SCH (05:30)
[2023-08-28] MEDS: HumaLOG 300 UNITS/3 ML VIAL SC PRN ×3 (05:36→22:30)
[2023-08-28] MEDS ORDERED: Morphine 2 MG/ML VIAL SLOW IVP SCH (05:45)
[2023-08-28 06:14] LABS: Anion Gap 16 mmol/L (10-20); BUN (Urea Nitrogen) 18 mg/dL (9.8-20.1); Calc. Creatinine Clearance 56 mL/min (70-130); Calcium 9.2 mg/dL (7.8-10.44); Carbon Dioxide 22 mmol/L (23-31); Chloride 104 mmol/L (98-107); Estimated GFR 48; Glucose 205 mg/dL (83-110); Potassium 4.5 mmol/L (3.5-5.1); Sodium 137 mmol/L (136-145)
[2023-08-28] MEDS ORDERED: HumaLOG 300 UNITS/3 ML VIAL SC PRN (07:59)
[2023-08-28] MEDS: metFORMIN 500 MG TAB PO SCH ×2 (09:00→17:20)
[2023-08-28] MEDS: Polyethylene Glycol 3350 17 GM Packet PO SCH (09:00)
[2023-08-28] MEDS ORDERED: Amlodipine 10 MG TAB PO SCH (09:00)
[2023-08-28] MEDS ORDERED: Lisinopril 5 MG TAB PO SCH (09:00)
[2023-08-28] MEDS: Gabapentin 400 MG CAP PO SCH ×2 (09:00→22:00)
[2023-08-28] MEDS: Cefepime 2 GM in Sodium Chloride 0.9% 100 ML IVPB SCH ×2 (09:00→21:59)
[2023-08-28] MEDS ORDERED: Magnesium 2 GM/50 ML(in water) 2 GM in Premix 1 BAG IVPB SCH (09:00)
[2023-08-28] MEDS: Apixaban 5 MG TAB PO SCH ×2 (09:00→22:02)
[2023-08-28] MEDS: Sertraline 100 MG TAB PO SCH (09:00)
[2023-08-28] MEDS: Vancomycin 1 GM in Sodium Chloride 0.9% 250 ML 250 ML IVPB SCH (17:31)
[2023-08-28] MEDS: Acyclovir 200 mg Capsule PO SCH (22:01)
[2023-08-28] MEDS: Morphine ER 15 MG TAB PO SCH (22:02)
[2023-08-28] MEDS: Atorvastatin Calcium 10 MG TAB PO SCH (22:03)
[2023-08-28] MEDS ORDERED: tiZANidine HCl 4 MG TAB PO PRN (22:13)
[2023-08-29] MEDS ORDERED: Morphine 2 MG/ML VIAL SLOW IVP SCH (00:15)
[2023-08-29 04:43] LABS: #Basophils 0.1 10x3/uL (0.0-0.2); #Eosinphils 0.2 10x3/uL (0.0-0.5); #Monocytes 0.8 10x3/uL (0.0-1.1); #Neutrophils 5.5 10x3/uL (1.5-8.4); %Basophils 0.7 % (0.0-2.0); %Monocytes 9.2 % (0.0-10.0); %Neutrophils 65.3 % (40.0-75.0); Hematocrit 31.6 % (34.9-44.5); Hemoglobin 10.2 g/dL (12.0-15.5); Mean Corpuscular HGB CONC 32.3 g/dL (32.0-36.0); Mean Corpuscular Hemoglobin 28.3 pg (27.0-33.0); Mean Corpuscular Volume 87.8 fl (81.6-98.3); Mean Platelet Volume 9.6 fl (7.4-10.4); Platelet Count 242 10x3/uL (150-450); RBC Distribution Width 13.7 % (11.5-14.5); White Blood Cell (WBC) Count 8.4 10x3/uL (3.5-10.5)
[2023-08-29 05:00] LABS: ALT (SGPT) 16 U/L (8-55); AST (SGOT) 17 U/L (5-34); Albumin 3.5 g/dL (3.4-4.8); Alkaline Phosphatase 60 U/L (40-110); Anion Gap 13 mmol/L (10-20); BUN (Urea Nitrogen) 20 mg/dL (9.8-20.1); Bilirubin, Total 0.2 mg/dL (0.2-1.2); Calc. Creatinine Clearance 57 mL/min (70-130); Calcium 9.4 mg/dL (7.8-10.44); Carbon Dioxide 26 mmol/L (23-31); Chloride 103 mmol/L (98-107); Estimated GFR 50; Globulin 2.7 g/dL (2.4-3.5); Glucose 184 mg/dL (83-110); Potassium 4.7 mmol/L (3.5-5.1); Protein, Total 6.2 g/dL (5.8-8.1); Sodium 137 mmol/L (136-145)
[2023-08-29] MEDS: HumaLOG 300 UNITS/3 ML VIAL SC PRN ×3 (07:35→17:25)
[2023-08-29] MEDS: Morphine ER 15 MG TAB PO SCH ×2 (09:12→21:23)
[2023-08-29] MEDS: Gabapentin 400 MG CAP PO SCH ×2 (09:15→21:20)
[2023-08-29] MEDS: Sertraline 100 MG TAB PO SCH (09:16)
[2023-08-29] MEDS: Apixaban 5 MG TAB PO SCH ×2 (09:16→21:23)
[2023-08-29] MEDS: Cefepime 2 GM in Sodium Chloride 0.9% 100 ML IVPB SCH ×2 (09:16→21:26)
[2023-08-29] MEDS: metFORMIN 500 MG TAB PO SCH ×2 (09:16→17:24)
[2023-08-29] MEDS: Polyethylene Glycol 3350 17 GM Packet PO SCH (09:17)
[2023-08-29] MEDS: Vancomycin 1 GM in Sodium Chloride 0.9% 250 ML 250 ML IVPB SCH ×2 (17:24→18:16)
[2023-08-29 17:42] LABS: Vancomycin, Trough 10.8 ug/mL
[2023-08-29] MEDS ORDERED: VANCOMYCIN 1.25 GM/250 ML BAG 1.25 GM in Premix 1 BAG IVPB SCH (18:00)
[2023-08-29] MEDS ORDERED: Multivit, Therapeutic 1 TAB PO SCH (21:00)
[2023-08-29] MEDS ORDERED: Cyanocobalamin (Vitamin B-12) 1,000 MCG TAB PO SCH (21:00)
[2023-08-29] MEDS ORDERED: Polyethylene Glycol 3350 17 GM Packet PO SCH (21:00)
[2023-08-29] MEDS ORDERED: tiZANidine HCl 4 MG TAB PO SCH (21:15)
[2023-08-29] MEDS: Atorvastatin Calcium 10 MG TAB PO SCH (21:22)
[2023-08-29] MEDS: Acyclovir 200 mg Capsule PO SCH (21:23)
[2023-08-30 04:21] LABS: #Basophils 0.1 10x3/uL (0.0-0.2); #Eosinphils 0.2 10x3/uL (0.0-0.5); #Monocytes 0.7 10x3/uL (0.0-1.1); #Neutrophils 4.9 10x3/uL (1.5-8.4); %Basophils 0.7 % (0.0-2.0); %Eosinophils 2.4 % (0.0-6.0); %Lymphocytes 25.6 % (18.0-47.0); %Neutrophils 61.1 % (40.0-75.0); Hematocrit 31.2 % (34.9-44.5); Hemoglobin 10.3 g/dL (12.0-15.5); Mean Corpuscular Hemoglobin 28.9 pg (27.0-33.0); Mean Corpuscular Volume 87.4 fl (81.6-98.3); Mean Platelet Volume 9.6 fl (7.4-10.4); Platelet Count 245 10x3/uL (150-450); RBC Distribution Width 13.6 % (11.5-14.5); Red Blood Cell (RBC) Count 3.57 10x6/uL (3.90-5.03)
[2023-08-30 04:22] LABS: Anion Gap 14 mmol/L (10-20); BUN (Urea Nitrogen) 17 mg/dL (9.8-20.1); Calc. Creatinine Clearance 62 mL/min (70-130); Calcium 9.6 mg/dL (7.8-10.44); Carbon Dioxide 26 mmol/L (23-31); Chloride 103 mmol/L (98-107); Estimated GFR 55; Glucose 195 mg/dL (83-110); Magnesium 1.6 mg/dL (1.6-2.6); Potassium 4.5 mmol/L (3.5-5.1); Sodium 138 mmol/L (136-145)
[2023-08-30] MEDS: HumaLOG 300 UNITS/3 ML VIAL SC PRN (06:15)
[2023-08-30] MEDS ORDERED: Magnesium Sulfate 4 GM in Sodium Chloride 0.9% 250 ML 250 ML IVPB SCH (08:00)
[2023-08-30] MEDS ORDERED: Magnesium 2 GM/50 ML(in water) 2 GM in Premix 1 BAG IVPB SCH ×2 (08:15→09:15)
[2023-08-30] MEDS ORDERED: Insulin Regular 300 UNITS/3 ML VIAL SC PRN (09:04)
[2023-08-30] MEDS ORDERED: HumuLIN 70/30 100 Unit/ ml 10 ml Vial SC SCH (09:15)
[2023-08-30] MEDS: Apixaban 5 MG TAB PO SCH (10:38)
[2023-08-30] MEDS: Morphine ER 15 MG TAB PO SCH (10:38)
[2023-08-30] MEDS: Sertraline 100 MG TAB PO SCH (10:39)
[2023-08-30] MEDS: Gabapentin 400 MG CAP PO SCH (10:39)
[2023-08-30] MEDS: metFORMIN 500 MG TAB PO SCH (11:02)
[2023-08-30] MEDS: Cefepime 2 GM in Sodium Chloride 0.9% 100 ML IVPB SCH (11:02)
[2023-08-30 13:23] VITALS: BP 148/67; TEMP 99.8
== END 2023-08-30 15:30 | disposition home or self-care (01) | DRG 871 ==
LOC: CSHERS 15:36 → CSHTELE 18:28
PROVIDERS: ADMIT Family Medicine; ATTEND Internal Medicine
DX: A41.50 Gram-negative sepsis, unspecified (principal); J15.69 Pneumonia due to other Gram-negative bacteria; J96.01 Acute respiratory failure with hypoxia; N17.9 Acute kidney failure, unspecified; G43.909 Migraine, unspecified, not intractable, without status migrainosus; E66.9 Obesity, unspecified; E78.5 Hyperlipidemia, unspecified; F32.A Depression, unspecified; I48.0 Paroxysmal atrial fibrillation; E11.22 Type 2 diabetes mellitus with diabetic chronic kidney disease; N18.30 Chronic kidney disease, stage 3 unspecified; G47.33 Obstructive sleep apnea (adult) (pediatric); M79.7 Fibromyalgia; G89.4 Chronic pain syndrome; I12.9 Hypertensive chronic kidney disease with stage 1 through stage 4 chronic kidney disease, or unspecified chronic kidney disease; D53.9 Nutritional anemia, unspecified; Z68.34 Body mass index [BMI] 34.0-34.9, adult; Z79.4 Long term (current) use of insulin; Z90.49 Acquired absence of other specified parts of digestive tract; Z98.890 Other specified postprocedural states; Z90.710 Acquired absence of both cervix and uterus; Z88.5 Allergy status to narcotic agent; Z91.018 Allergy to other foods; Z79.899 Other long term (current) drug therapy; Z79.01 Long term (current) use of anticoagulants; Z79.84 Long term (current) use of oral hypoglycemic drugs; Z11.52 Encounter for screening for COVID-19
CPT/HCPCS: 36415; 36416; 71045; 71046; 80048; 80053; 80202; 83605; 83735; 84145; 84484; 85025; 86140; 87040; 87086; 87449; 87807; 87899; 93005; 94760; 94762; J0692; J1815; J2272; J3370; J3475; J3490; J7050

== ENCOUNTER 2023-09-26 11:12 | Outpatient (CLI) | payer OTHER, MEDICARE | END 2023-09-26 11:13 | disposition home or self-care (01) | LOC: CSHRAD 11:12 | PROVIDERS: ATTEND Family Medicine | DX: J18.9 Pneumonia, unspecified organism (principal) | CPT/HCPCS: 71046 ==

== ENCOUNTER 2023-11-21 | Observation (INO) | payer MEDICARE | END 2023-11-22 10:09 | disposition home or self-care (01) | PROVIDERS: ADMIT Family Medicine | DX: I48.0 Paroxysmal atrial fibrillation (principal); R07.89 Other chest pain; E11.22 Type 2 diabetes mellitus with diabetic chronic kidney disease; I12.9 Hypertensive chronic kidney disease with stage 1 through stage 4 chronic kidney disease, or unspecified chronic kidney disease; N18.32 Chronic kidney disease, stage 3b; I25.10 Atherosclerotic heart disease of native coronary artery without angina pectoris; G47.33 Obstructive sleep apnea (adult) (pediatric); E78.5 Hyperlipidemia, unspecified; K21.9 Gastro-esophageal reflux disease without esophagitis; Z90.49 Acquired absence of other specified parts of digestive tract; Z96.619 Presence of unspecified artificial shoulder joint; Z88.5 Allergy status to narcotic agent; Z90.710 Acquired absence of both cervix and uterus; Z91.018 Allergy to other foods; Z79.899 Other long term (current) drug therapy; Z79.84 Long term (current) use of oral hypoglycemic drugs; Z79.01 Long term (current) use of anticoagulants ==